=== PATIENT | male | born 1970 | race Caucasian/White ===

== ENCOUNTER 2019-01-30 10:20 | Inpatient (IN) ==
[2019-01-30] MEDS ORDERED: ONDANSETRON 4 MG/2 ML VIAL ONE ×2 (11:08→13:47)
[2019-01-30] MEDS ORDERED: HYDROmorphone 2 MG/1 ML VIAL ONE (11:09)
[2019-01-30] MEDS ORDERED: ONDANSETRON 4 MG/2 ML VIAL IV STA (11:18)
[2019-01-30] MEDS ORDERED: DIPH/TET/ACEL PERT BOOSTER VACCINE 0.5 ML VIAL IM ONE (11:18)
[2019-01-30] MEDS ORDERED: HYDROmorphone 2 MG/1 ML VIAL IV STA (11:18)
[2019-01-30] MEDS ORDERED: hydrALAZINE 20 MG/1 ML VIAL IV STA (11:19)
[2019-01-30] MEDS ORDERED: hydrALAZINE 20 MG/1 ML VIAL ONE (11:19)
[2019-01-30] MEDS ORDERED: ceFAZolin 1,000 MG VIAL ONE (11:19)
[2019-01-30 11:31] LABS: Basophils # 0.1 10*3/uL (0.0-0.2); Basophils % 1.2 % (0.0-0.8); Eosinophils # 0.6 10*3/uL (0.0-0.87); Eosinophils % 6.3 % (0.00-10.9); Hematocrit 45.1 VOL% (42.0-52.0); Hemoglobin 14.7 GM/DL (14.0-18.0); Immature Granulocytes % 0.1 %; Immature Granulocytes Absolute 0.01 #; Lymphocytes # 4.5 10*3/uL (1.4-4.0); Lymphocytes % 48.4 % (21.2-54.2); Mean Corpuscular HGB Conc 32.6 GM/DL (32-36); Mean Corpuscular Hemoglobin 29 PG (27-34); Mean Corpuscular Volume 89.3 FL (87-102); Mean Platelet Volume 10.3 FL (9.6-12.0); Monocytes % 10.4 % (1.7-12.7); Neutrophils # 3.1 10*3/uL (1.4-7.4); Neutrophils % 33.6 % (38.7-73.9); Platelet Count 354 T/CUMM (130-400); Red Blood Count 5.05 MC/CUMM (3.8-5.5); Red Cell Distribution Width 14.9 % (9.3-17.3); White Blood Count 9.2 T/CUMM (4-12)
[2019-01-30 11:37] LABS: INR 0.9; PT Patient Result 10.3 SECS
[2019-01-30] MEDS: SODIUM CHLORIDE 0.9% 1,000 ML IV SCH ×3 (11:41→21:31)
[2019-01-30 11:50] LABS: Eosinophils 7 % (0-10); Lymphocytes 53 % (20-55); Platelet Estimate Adequate; Segmented Neutrophils 30 % (50-85); Total Cells Counted 100
[2019-01-30 11:51] LABS: Atypical Lymphocytes Few; Hypochromasia Slight
[2019-01-30 11:54] LABS: Albumin 3.6 G/DL (3.4-5.0); Bilirubin,Total 0.4 MG/DL (0.2-1.0); Calcium 8.8 MG/DL (8.5-10.1); Osmolality,Calculated 276.7 MOS/KG (273-304); Potassium 4.1 MMOL/L (3.5-5.1); Total Protein 7.2 G/DL (6.4-8.3)
[2019-01-30] MEDS ORDERED: diphenhydrAMINE CAP 25 MG CAPSULE PO PRN (11:56)
[2019-01-30] MEDS ORDERED: LACTULOSE 20 GM/30 ML UDCUP PO PRN (11:56)
[2019-01-30] MEDS ORDERED: PROMETHAZINE 25 MG/1 ML VIAL IM PRN (11:56)
[2019-01-30] MEDS ORDERED: MAGNESIUM HYDROXIDE SUSP 30 ML UDCUP PO PRN (11:56)
[2019-01-30] MEDS ORDERED: ONDANSETRON 4 MG/2 ML VIAL IV PRN (11:56)
[2019-01-30] MEDS ORDERED: PROPOFOL 200 MG/20 ML VIAL IV ONE (13:46)
[2019-01-30] MEDS ORDERED: MIDAZOLAM 2 MG/2 ML VIAL ONE (13:47)
[2019-01-30] MEDS ORDERED: ePHEDrine 50 MG/ML AMP ONE (13:47)
[2019-01-30] MEDS ORDERED: SEVOFLURANE 1 UNIT/15 MINUTE INH ONE (13:47)
[2019-01-30] MEDS ORDERED: ACETAMINOPHEN 1,000 MG/100 ML VIAL IV ONE (13:47)
[2019-01-30] MEDS ORDERED: PHENYLEPHRINE 1 MG/10 ML SYRINGE IV ONE (13:48)
[2019-01-30] MEDS ORDERED: SUCCINYLCHOLINE 200 MG/10 ML VIAL ONE (13:48)
[2019-01-30] MEDS: ceFAZolin 1,000 MG in SYRINGE 1 EACH IV SCH (15:41)
[2019-01-30] MEDS ORDERED: hydrALAZINE 20 MG/1 ML VIAL IV PRN (17:11)
[2019-01-30] MEDS: MORPHINE 4 MG/1 ML VIAL IV PRN (17:12)
[2019-01-31] MEDS: MORPHINE 4 MG/1 ML VIAL IV PRN ×2 (00:06→09:07)
[2019-01-31] MEDS: ceFAZolin 1,000 MG in SYRINGE 1 EACH IV SCH ×2 (00:10→09:04)
[2019-01-31 12:26] VITALS: BP 129/79
== END 2019-01-31 14:25 | disposition home or self-care (01) | DRG 501 ==
LOC: N.ED 10:20 → N.3E 11:53 → N.EDINP 11:56 → N.3E 14:17
PROVIDERS: ADMIT Orthopaedic Surgery; ATTEND Orthopaedic Surgery

== ENCOUNTER 2019-08-30 18:03 | Inpatient (IN) ==
[2019-08-30] MEDS ORDERED: VANCOMYCIN INJ 1,000 MG in SODIUM CHLORIDE 0.9% 250 ML IV STA ×2 (18:29→18:33)
[2019-08-30] MEDS ORDERED: SODIUM CHLORIDE 0.9% 2,000 ML IV STA (18:29)
[2019-08-30 18:43] LABS: Basophils # 0.1 10*3/uL (0.0-0.2); Basophils % 0.7 % (0.0-0.8); Eosinophils # 0.4 10*3/uL (0.0-0.87); Eosinophils % 2.7 % (0.00-10.9); Hematocrit 43.3 VOL% (42.0-52.0); Hemoglobin 13.9 GM/DL (14.0-18.0); Immature Granulocytes % 0.6 %; Immature Granulocytes Absolute 0.08 #; Lymphocytes # 3.4 10*3/uL (1.4-4.0); Lymphocytes % 23.5 % (21.2-54.2); Mean Corpuscular HGB Conc 32.1 GM/DL (32-36); Mean Corpuscular Volume 86.1 FL (87-102); Mean Platelet Volume 8.6 FL (9.6-12.0); Monocytes % 15.4 % (1.7-12.7); Neutrophils % 57.1 % (38.7-73.9); Platelet Count 579 T/CUMM (130-400); Red Blood Count 5.03 MC/CUMM (3.8-5.5); White Blood Count 14.2 T/CUMM (4-12)
[2019-08-30 18:57] LABS: PT Patient Result 11.1 SECS (9.6-12.2)
[2019-08-30 19:07] LABS: Alanine Aminotransferase 37 U/L (16-61); Albumin 2.5 G/DL (3.4-5.0); Alkaline Phosphatase 89 U/L (45-117); Aspartate Amino Transferase 28 U/L (0-37); Bilirubin,Total < 0.39 MG/DL (0.2-1.0); Blood Urea Nitrogen 8 MG/DL (7-18); Estimated Glom Filtration Rate 90 ML/MIN; Glucose 109 MG/DL (74-106); Osmolality,Calculated 266.2 MOS/KG (273-304); Total Protein 7.2 G/DL (6.4-8.3); Troponin I < 0.015 NG/ML (0.00-0.045)
[2019-08-30 19:52] LABS: Apearance,Urine CLEAR (Clear); Bilirubin,Urine Negative (Negative); Blood, Urine Negative (Negative); Glucose,Urine (UA) Negative (Negative); Ketones,Urine Negative (Negative); Nitrite,Urine Negative (Negative); Protein,Urine Negative; RBC,Urine 3 /HPF (0-4); Urine Color Yellow (Yellow); Urine Specific Gravity 1.045 (1.001-1.035); WBC,Urine <1 /HPF (0-6)
[2019-08-30] MEDS ORDERED: ACETAMINOPHEN 325 MG TABLET PO PRN (20:26)
[2019-08-30] MEDS ORDERED: diphenhydrAMINE 50 MG/1 ML VIAL IV PRN (20:26)
[2019-08-30] MEDS ORDERED: ONDANSETRON 4 MG/2 ML VIAL IV PRN (20:26)
[2019-08-30] MEDS ORDERED: NICOTINE 21 MG/24 HR PATCH TRANSDERM PRN (20:26)
[2019-08-30 21:52] LABS: HIV Antigen/Antibody Result Nonreactive (Nonreactive); Hepatitis B Core IgM Quant 0.07 Index; Hepatitis B Surface Ag Quant < 0.10 Index; Hepatitis B Surface Ag Result Negative (Negative); Hepatitis C Virus Ab Quant > 11.00 Index; Hepatitis C Virus Ab Result Positive (Negative)
[2019-08-30] MEDS: PIPERACILLIN/TAZOBACTAM 3,375 MG in SODIUM CHLORIDE 0.9% 100 ML IV SCH (23:10)
[2019-08-30] MEDS: SODIUM CHLORIDE 0.9% 1,000 ML IV SCH (23:10)
[2019-08-31 00:39] LABS: Barbiturates Screen,Urine Negative (Negative); Benzodiazepines Screen,Urine Negative (Negative); Cannabinoid Screen,Urine Negative (Negative); Opiate Screen,Urine Negative (Negative); Phencyclidine Screen,Urine Negative (Negative)
[2019-08-31 06:09] LABS: Alanine Aminotransferase 32 U/L (16-61); Albumin 2.3 G/DL (3.4-5.0); Alkaline Phosphatase 79 U/L (45-117); Aspartate Amino Transferase 24 U/L (0-37); Bilirubin,Total < 0.39 MG/DL (0.2-1.0); Blood Urea Nitrogen 9 MG/DL (7-18); Calcium 8.3 MG/DL (8.5-10.1); Estimated Glom Filtration Rate 88 ML/MIN; Glucose 95 MG/DL (74-106); Osmolality,Calculated 273.7 MOS/KG (273-304); Total Protein 6.7 G/DL (6.4-8.3)
[2019-08-31] MEDS: VANCOMYCIN INJ 1,000 MG in SODIUM CHLORIDE 0.9% 250 ML IV SCH ×2 (06:38→18:52)
[2019-08-31 07:03] LABS: Basophils # 0.1 10*3/uL (0.0-0.2); Basophils % 0.6 % (0.0-0.8); Eosinophils # 0.3 10*3/uL (0.0-0.87); Eosinophils % 2.7 % (0.00-10.9); Hematocrit 39.4 VOL% (42.0-52.0); Hemoglobin 12.6 GM/DL (14.0-18.0); Immature Granulocytes % 0.4 %; Immature Granulocytes Absolute 0.05 #; Lymphocytes # 2.5 10*3/uL (1.4-4.0); Lymphocytes % 20.2 % (21.2-54.2); Mean Corpuscular Volume 85.3 FL (87-102); Mean Platelet Volume 9.4 FL (9.6-12.0); Neutrophils % 62.1 % (38.7-73.9); Platelet Count 624 T/CUMM (130-400); Red Blood Count 4.62 MC/CUMM (3.8-5.5); Red Cell Distribution Width 14.2 % (9.3-17.3); White Blood Count 12.2 T/CUMM (4-12)
[2019-08-31] MEDS: SODIUM CHLORIDE 0.9% 1,000 ML IV SCH ×2 (08:28→13:15)
[2019-08-31] MEDS: MORPHINE 4 MG/1 ML VIAL IV PRN ×2 (09:55→15:40)
[2019-08-31] MEDS: PIPERACILLIN/TAZOBACTAM 3,375 MG in SODIUM CHLORIDE 0.9% 100 ML IV SCH ×2 (10:12→17:30)
[2019-08-31] MEDS ORDERED: CALAMINE LOTION 180 ML BOTTLE TOP PRN (10:29)
[2019-08-31] MEDS: MUPIROCIN 2% OINT 22 GM TUBE TOP SCH ×2 (14:46→20:11)
[2019-09-01] MEDS: MORPHINE 4 MG/1 ML VIAL IV PRN ×3 (01:35→17:32)
[2019-09-01] MEDS: PIPERACILLIN/TAZOBACTAM 3,375 MG in SODIUM CHLORIDE 0.9% 100 ML IV SCH ×3 (01:37→21:43)
[2019-09-01] MEDS: VANCOMYCIN INJ 1,000 MG in SODIUM CHLORIDE 0.9% 250 ML IV SCH ×2 (06:11→18:30)
[2019-09-01] MEDS ORDERED: LIDOCAINE 1%/EPI INJ 20 ML VIAL ONE (06:30)
[2019-09-01 07:30] LABS: Barbiturates Screen,Urine Negative (Negative); Benzodiazepines Screen,Urine Negative (Negative); Cannabinoid Screen,Urine Negative (Negative); Opiate Screen,Urine Positive (Negative); Phencyclidine Screen,Urine Negative (Negative)
[2019-09-01] MEDS ORDERED: EPINEPHrine 1 MG/ML VIAL ONE (08:41)
[2019-09-01] MEDS ORDERED: BACITRACIN OINT 0.9 GM PACK TOP ONE (08:41)
[2019-09-01] MEDS ORDERED: MUPIROCIN 2% OINT 22 GM TUBE TOP ONE (10:46)
[2019-09-01] MEDS ORDERED: LIDOCAINE 2% 5 ML VIAL ONE (11:10)
[2019-09-01] MEDS ORDERED: MIDAZOLAM 2 MG/2 ML VIAL ONE (11:10)
[2019-09-01] MEDS ORDERED: PROPOFOL 200 MG/20 ML VIAL IV ONE (11:10)
[2019-09-01] MEDS ORDERED: DESFLURANE 1 UNIT/15 MINUTE INH ONE (11:10)
[2019-09-01] MEDS ORDERED: GLYCOPYRROLATE 0.4 MG/2 ML VIAL ONE (11:11)
[2019-09-01] MEDS ORDERED: fentaNYL 100 MCG/2 ML VIAL ONE (11:11)
[2019-09-01] MEDS ORDERED: LACTATED RINGERS 1,000 ML IV ONE (11:11)
[2019-09-01] MEDS ORDERED: ROCURONIUM 100 MG/10 ML VIAL IV ONE (11:11)
[2019-09-01] MEDS ORDERED: PHENYLEPHRINE 1 MG/10 ML SYRINGE IV ONE (11:11)
[2019-09-01] MEDS ORDERED: ONDANSETRON 4 MG/2 ML VIAL ONE (11:11)
[2019-09-01] MEDS ORDERED: PHENYLEPHRINE 10 MG/1 ML VIAL IV ONE (11:11)
[2019-09-01] MEDS ORDERED: SODIUM CHLORIDE 0.9% 250 ML IV ONE (11:11)
[2019-09-01] MEDS ORDERED: SUCCINYLCHOLINE 200 MG/10 ML VIAL ONE (11:11)
[2019-09-01] MEDS ORDERED: DEXAMETHASONE 4 MG/1 ML VIAL ONE (11:11)
[2019-09-01] MEDS ORDERED: MEPERIDINE 25 MG/1 ML VIAL IV PRN (11:13)
[2019-09-01] MEDS ORDERED: PROMETHAZINE INJ 25 MG in SODIUM CHLORIDE 0.9% 50 ML IV PRN (11:13)
[2019-09-01] MEDS ORDERED: ONDANSETRON 4 MG/2 ML VIAL IV PRN (11:13)
[2019-09-01] MEDS ORDERED: diphenhydrAMINE 50 MG/1 ML VIAL IV PRN (11:13)
[2019-09-01] MEDS: SODIUM CHLORIDE 0.9% 1,000 ML IV SCH ×4 (11:21→21:46)
[2019-09-01] MEDS: MUPIROCIN 2% OINT 22 GM TUBE TOP SCH ×3 (15:39→21:47)
[2019-09-02] MEDS: MORPHINE 4 MG/1 ML VIAL IV PRN ×5 (04:46→22:27)
[2019-09-02] MEDS: VANCOMYCIN INJ 1,000 MG in SODIUM CHLORIDE 0.9% 250 ML IV SCH ×3 (04:48→20:10)
[2019-09-02] MEDS: PIPERACILLIN/TAZOBACTAM 3,375 MG in SODIUM CHLORIDE 0.9% 100 ML IV SCH ×3 (06:17→22:18)
[2019-09-02] MEDS: MUPIROCIN 2% OINT 22 GM TUBE TOP SCH ×3 (09:00→20:13)
[2019-09-02] MEDS: SODIUM CHLORIDE 0.9% 1,000 ML IV SCH ×3 (13:38→20:13)
[2019-09-03] MEDS: VANCOMYCIN INJ 1,000 MG in SODIUM CHLORIDE 0.9% 250 ML IV SCH ×2 (03:48→11:04)
[2019-09-03 05:22] LABS: Basophils # 0.1 10*3/uL (0.0-0.2); Basophils % 0.7 % (0.0-0.8); Eosinophils # 0.4 10*3/uL (0.0-0.87); Eosinophils % 3.4 % (0.00-10.9); Hematocrit 39.7 VOL% (42.0-52.0); Hemoglobin 12.6 GM/DL (14.0-18.0); Immature Granulocytes % 0.6 %; Immature Granulocytes Absolute 0.07 #; Lymphocytes # 4.8 10*3/uL (1.4-4.0); Lymphocytes % 39.5 % (21.2-54.2); Mean Corpuscular HGB Conc 31.7 GM/DL (32-36); Mean Corpuscular Volume 86.7 FL (87-102); Mean Platelet Volume 8.8 FL (9.6-12.0); Monocytes % 10.7 % (1.7-12.7); Neutrophils % 45.1 % (38.7-73.9); Platelet Count 656 T/CUMM (130-400); Red Blood Count 4.58 MC/CUMM (3.8-5.5); Red Cell Distribution Width 14.6 % (9.3-17.3); White Blood Count 12.1 T/CUMM (4-12)
[2019-09-03 05:57] LABS: Calcium 8.1 MG/DL (8.5-10.1); Osmolality,Calculated 275.4 MOS/KG (273-304)
[2019-09-03] MEDS: PIPERACILLIN/TAZOBACTAM 3,375 MG in SODIUM CHLORIDE 0.9% 100 ML IV SCH (06:28)
[2019-09-03] MEDS: SODIUM CHLORIDE 0.9% 1,000 ML IV SCH (07:37)
[2019-09-03] MEDS: MORPHINE 4 MG/1 ML VIAL IV PRN (07:38)
[2019-09-03] MEDS: MUPIROCIN 2% OINT 22 GM TUBE TOP SCH ×2 (08:14→12:38)
[2019-09-03] MEDS ORDERED: SULFAMETHOX/TRIMETHOPRIM 800-160 MG TABLET PO SCH (12:00)
[2019-09-03 12:55] VITALS: BP 109/65
== END 2019-09-03 14:00 | disposition home or self-care (01) | DRG 571 ==
LOC: N.ED 18:03 → N.EDINP 20:26 → N.3E 21:47
PROVIDERS: ADMIT Internal Medicine Geriatric Medicine; ATTEND Internal Medicine Geriatric Medicine